=== PATIENT | male | born 1960 | race African-American/Black ===

== ENCOUNTER 2017-09-01 21:32 | Emergency (ER) | payer OTHER ==
[~2017-09-01] VITALS: Ht 182.9 cm; Wt 116.0 kg
[~2017-09-01 21:32] MED LIST: NEBI10TA2; ROSU20TA
[2017-09-02] MEDS: CYCLOBENZAPRINE 10MG TABLET PO ONE (00:27)
[2017-09-02] MEDS: KETOROLAC 60MG/2ML VIAL IM ONE (00:27)
[2017-09-02 03:32] VITALS: BP 133/87
== END 2017-09-02 03:33 | disposition home or self-care (01) ==
LOC: ER 22:08
DX: S13.4XXA Sprain of ligaments of cervical spine, initial encounter (principal); M43.6 Torticollis; I10 Essential (primary) hypertension; E78.00 Pure hypercholesterolemia, unspecified; I25.2 Old myocardial infarction; Z88.5 Allergy status to narcotic agent; X50.1XXA Overexertion from prolonged static or awkward postures, initial encounter; Y93.89 Activity, other specified; Y92.89 Other specified places as the place of occurrence of the external cause; Y99.8 Other external cause status
CPT/HCPCS: 72125; 96372; 99284; J1885; Z7610

== ENCOUNTER 2024-10-14 14:24 | Emergency (ER) | payer OTHER ==
[~2024-10-14] VITALS: Ht 182.9 cm; Wt 115.6 kg
[~2024-10-14 14:24] MED LIST changes: +NEBI10TA10; -NEBI10TA2; -ROSU20TA; +ROSU20TA2
[2024-10-14 14:30] VITALS: TEMP 98
[2024-10-14 16:11] LABS: BASOPHILS % 1.2 % (0.0-2.0); CHLORIDE 105 mEq/L (98-107); EOSINOPHILS % 10.5 % (0.0-5.0); HEMATOCRIT. 37.9 % (42.0-52.0); HEMOGLOBIN. 11.6 g/dL (14.0-18.0); LYMPHOCYTES % 26.6 % (20.0-50.0); MEAN CORPUSCULAR HEMOGLOBIN 20.6 pg (28.0-32.0); MEAN CORPUSCULAR HGB CONC 30.6 g/dL (31.0-37.0); MEAN CORPUSCULAR VOLUME 67.3 fL (80.0-94.0); MEAN PLATELET VOLUME 8.5 fl (7.4-10.4); NEUTROPHILS % 52.7 % (40.0-76.0); PLATELET 335 x1000/uL (130-400); POTASSIUM 3.2 mEq/L (3.5-5.1); RED BLOOD CELL COUNT 5.63 mill/uL (4.7-6.1); RED CELL DISTRIBUTION WIDTH 22.1 % (11.6-14.6); SODIUM 140 mEq/L (136-145); WHITE BLOOD COUNT 7.3 x1000/uL (4.5-11.0)
[2024-10-14 16:12] LABS: CARBON DIOXIDE 29 mEq/L (21-32); DIFFERENTIAL COMMENT 1
[2024-10-14 16:13] LABS: ADD RBC MORPHOLOGY YES
[2024-10-14 16:17] LABS: CREATININE 1.3 mg/dL (0.6-1.3); GLUCOSE 100 mg/dL (70-105); UREA NITROGEN BLOOD 17 mg/dL (9-23)
[2024-10-14 16:18] LABS: TROPONIN I HIGH SENSITIVITY 9 ng/L (3.0-53)
[2024-10-14 17:32] LABS: ANISOCYTOSIS 2+; HYPOCHROMASIA 2+; MICROCYTOSIS 3+; OVALOCYTES 1+; PLATELET ESTIMATE NORMAL
[2024-10-14] MEDS: IPRATROPIUM/ALBUTEROL 0.5-3(2.5)MG/3ML NEB HHN ONE (18:00)
[2024-10-14] MEDS ORDERED: DEXAMETHASONE 10 MG/ML VIAL PO ONE (18:00)
[2024-10-14 19:24] VITALS: PULSE 90; RESP 24; O2SAT 94
[2024-10-14 20:44] VITALS: BP 148/71; PULSE 81; RESP 17; O2SAT 98
== END 2024-10-14 20:44 | disposition home or self-care (01) ==
LOC: ER 14:24
DX: J45.901 Unspecified asthma with (acute) exacerbation (principal); E78.00 Pure hypercholesterolemia, unspecified; I10 Essential (primary) hypertension; Z88.1 Allergy status to other antibiotic agents; Z88.5 Allergy status to narcotic agent; Z95.0 Presence of cardiac pacemaker; Z96.659 Presence of unspecified artificial knee joint; Z79.52 Long term (current) use of systemic steroids
CPT/HCPCS: 80048; 85025; 84484; 36415; 71045; 94640; 93005; 99285; Z7610 ×3